=== PATIENT | female | born 1945 | race Caucasian/White ===

== ENCOUNTER 2020-12-07 08:25 | Emergency (ER) | payer OTHER, SELFPAY ==
--- NOTE | ~2020-12-07 | XR_ITS ---
EXAMINATION: XR finger 1st RT min 2V DATE: 12/07/2020 08:52 INDICATION: Right thumb injury and pain. TECHNIQUE: 3 views of right thumb were obtained. COMPARISON: None. FINDINGS: Bone alignment is normal. No fracture. There is severe osteoarthritis of first carpometacar pal joint and mild osteoarthritis of triscaphe joint, first metacarpophalangeal joint, and first inte rphalangeal joint. IMPRESSION: 1. Polyarticular osteoarthritis. Reviewed, dictated and finalized at location A.
[2020-12-07 08:35] VITALS: BP 121/65; PULSE 51; RESP 16; TEMP 36.6; O2SAT 100
--- NOTE | 2020-12-07 08:40 | ED.UPPEXIN ---
HPI - Extremity Injury (Upper) General Chief Complaint: Extremity Injury, Upper Stated Complaint: Swollen and bruised right Thumb Time Seen by Provider: 12/07/20 08:45 Source: patient Mode of arrival: ambulatory Limitations: no limitations History of Present Illness HPI narrative: Modesta Chappell is a 75 yo female with PMH of migraine, HN, anxiety, high cholesterol, comes to [facility] with a swollen R thumb she was throwing a screw coming out the door on Wednesday or Wednesday and hitting her finger against the frame of the door. Swollen painful and bruised; she is here to fracture Related Data Home Medications Medication Instructions Recorded Confirmed aspirin 81 mg PO DAILY 12/07/20 12/07/20 atorvastatin 80 mg PO DAILY 12/07/20 12/07/20 meloxicam 15 mg PO DAILY 12/07/20 12/07/20 omeprazole 40 mg PO DAILY 12/07/20 12/07/20 sumatriptan succinate 100 mg PO USEASDIRECTD 12/07/20 12/07/20 topiramate 50 mg PO BID 12/07/20 12/07/20 Allergies Allergy/AdvReac Type Severity Reaction Status Date / Time No Known Allergies Allergy Unverified 05/02/13 16:19 Review of Systems Review of Systems: Narrative: CONSTITUTIONAL: Denies fever, chills, sweats. EYES: Denies visual changes, redness, discharge. ENT: Denies rhinorrhea, congestion, sore throat, otalgia. CARDIOVASCULAR: Denies chest pain, palpitations, edema. RESPIRATORY: Denies dyspnea, wheezing, cough GASTROINTESTINAL: Denies abdominal pain, nausea, vomiting, diarrhea. GENITOURINARY: Denies dysuria, hematuria, abnormal discharge SKIN: Denies rash or itching. NEUROLOGIC: Denies numbness, or focal weakness. PSYCHIATRIC: Denies anxiety or depression. Right thumb swelling and ecchymosis PMFSH Past Medical History Medical History (Updated 12/07/20 @ 09:22 by Dawna Thomas CNP) Anxiety High cholesterol HTN (hypertension) BROOKS (nonalcoholic steatohepatitis) TIA (transient ischemic attack) Family History Family History Other Heart disease Hypertension Social History Social History (Updated 12/07/20 @ 08:59 by Dawna Thomas CNP) Smoking status: Former smoker Alcohol intake: former Gender identity (if verbalized by the patient): Female Comments At time of signature, I agree with nursing past medical, surgical, social and family history. There is no relevant family history pertinent to the presenting complaint. Exam Narrative: Exam Narrative: GENERAL: This is a well-nourished, well-developed patient, in mild distress. HEAD: normocephalic, atraumatic. EYES:Sclera clear/white. Vision is grossly intact. EARS: External ears normal. Hearing grossly intact. NOSE: External nose normal without nasal discharge, nares without redness, no rhinorrhea. THROAT: Mucous membranes moist, NECK: Neck supple, CARDIOVASCULAR: Regular rate and rhythm without murmurs, gallops, or rubs. RESPIRATORY: Clear to auscultation. Breath sounds equal bilaterally. No wheezes, rales, or rhonchi. GASTROINTESTINAL: Abdomen soft, SKIN: warm, intact with no suspicious lesions or rash, good texture and turgor. NEURO: awake, alert, and oriented to person, place and time. There were no obvious focal neurologic abnormalities. Steady gait EXTREMITIES: Normal range of motion. Right thumb can do finger opposition but difficulty with taking them across to finger 5 because of in it base of thumb and at distal joint she states that her distal area of her thumb is the most tender although she has bruising that goes from the snuffbox to the fingertip with moderate swelling. Capillary refill <2v sec. No nail involvement BACK: Nontender without deformity Course Course Emergency Course: Patient hit right thumb on door frame on Wednesday or Wednesday and has swelling and ecchymosis X-ray of right thumb shows-polyuric particular osteoarthritis, bone alignment is normal with no fracture Placed in a thumb splint keep hand elevated at night Vital Si
== END 2020-12-07 09:29 | disposition home or self-care (01) ==
PROVIDERS: Emergency Provider Nurse Practitioner; PCP Family Medicine
DX: S69.91XA Unspecified injury of right wrist, hand and finger(s), initial encounter (principal); W22.01XA Walked into wall, initial encounter; E78.00 Pure hypercholesterolemia, unspecified; K75.81 Nonalcoholic steatohepatitis (NASH); Z86.73 Personal history of transient ischemic attack (TIA), and cerebral infarction without residual deficits; Z87.891 Personal history of nicotine dependence
CPT/HCPCS: 29130; 73140; 99203; G0463

== ENCOUNTER 2023-04-03 11:46 | Emergency (ER) | payer OTHER, SELFPAY ==
--- NOTE | ~2023-04-03 | XR_ITS ---
EXAMINATION: XR hand LT min 3V INDICATION: Left hand pain, initial encounter TECHNIQUE: Three views of the left hand are obtained. COMPARISON: None available FINDINGS: There is an acute, traumatic, closed, nondisplaced fracture in the distal neck of the fifth metacarpal. No additional fracture is identified. There is mild osteoarthritis of multiple interphal angeal joints. There is advanced osteoarthritis of the triscaphe and first carpometacarpal joints. IMPRESSION: 1. Acute nondisplaced fracture in the distal neck of the fifth metacarpal. Reviewed, dictated and finalized at location F.
[2023-04-03 11:52] VITALS: BP 141/73; PULSE 60; RESP 20; TEMP 36.6; O2SAT 100
--- NOTE | 2023-04-03 12:00 | ED.FALL ---
HPI - Fall General Chief Complaint: Fall Stated Complaint: Fall Injury, Left Hand and Knee Pain History of Present Illness HPI Narrative: Patient presents with an abrasion to her left knee had injury to her left hand and little finger. Patient states she was standing on the bed to fix an item on the wall and fell off of the bed catching herself with her left hand. Bruising to the lateral side of her left hand no deformity noted. Related Data Home Medications Medication Instructions Recorded Confirmed aspirin 81 mg PO DAILY 12/07/20 12/07/20 atorvastatin 80 mg tablet 80 mg PO DAILY 12/07/20 12/07/20 meloxicam 15 mg tablet 15 mg PO DAILY 12/07/20 12/07/20 omeprazole 40 mg capsule,delayed 40 mg PO DAILY 12/07/20 12/07/20 release sumatriptan succinate 100 mg tablet 100 mg PO USEASDIRECTD 12/07/20 12/07/20 topiramate 25 mg tablet 50 mg PO BID 12/07/20 12/07/20 alprazolam 0.5 mg tablet mg 04/03/23 cholestyramine (with sugar) 4 gram ea 04/03/23 powder for susp in a packet fluticasone propionate 50 intranasal 04/03/23 mcg/actuation nasal spray,suspension propranolol 40 mg tablet mg 04/03/23 Allergies Allergy/AdvReac Type Severity Reaction Status Date / Time No Known Allergies Allergy Unverified 05/02/13 16:19 Review of Systems Review of Systems: CONSTITUTIONAL: Denies fever, chills, or sweats. EYES: Denies visual changes, redness, or discharge. ENT: Denies rhinorrhea, congestion, sore throat, or otalgia. CARDIOVASCULAR: Denies chest pain, palpitations, or edema. RESPIRATORY: Denies cough or dyspnea. GASTROINTESTINAL: Denies abdominal pain, nausea, vomiting, or diarrhea. GENITOURINARY: Denies dysuria or hematuria. SKIN: Denies rash or itching. MUSCULOSKELETAL: Denies back pain, joint pain, or myalgia. NEUROLOGIC: Denies headache, numbness, or weakness. PSYCHIATRIC: Denies anxiety or depression. [facility] Past Medical History Medical History (Updated 04/03/23 @ 12:29 by BRYSON Ahn) Anxiety High cholesterol HTN (hypertension) BROOKS (nonalcoholic steatohepatitis) TIA (transient ischemic attack) Family History Family History Other Heart disease Hypertension Social History Social History (Updated 12/07/20 @ 08:59 by Dawna Thomas, PAULINA) Smoking status: Former smoker Alcohol intake: former Gender identity (if verbalized by the patient): Female Comments At time of signature, agree with nursing past medical, surgical, social and family history. There is no relevant family history pertinent to the presenting complaint . Patient denies any head injury no loss of consciousness denies any other injuries. Exam Narrative: GENERAL: Well-appearing, well-nourished, and in no acute distress. HEAD: Normocephalic, atraumatic. EYES: PERRLA and EOMI. ENT: Nares clear, no rhinorrhea or epistaxis. Mucous membranes moist. NECK: Supple. CHEST: Clear to auscultation. No respiratory distress. HEART: Regular rate and rhythm. No murmur heard. Normal peripheral pulses. ABDOMEN: Soft, nontender, nondistended, normal active bowel sounds. EXTREMITIES: Normal range of motion. No edema. 3 cm abrasion to left knee. HAND EXAM - Skin intact, no laceration, no swelling, no erythema, normal digit cascade with flexion of fingers, median nerve, ulnar nerve, radial nerve is intact. Normal sensation of each side of each finger, can perform `ok? sign, `cross over finger test of index and middle fingers? and `thumbs up? sign, normal thumb opposition, no scissoring. good capillary refill and radial pulse. normal flexion and extension of fingers and wrist. normal supination at wrist. Normal forearm and elbow exam.bruising to lateral side of left hand SKIN: Warm, dry, no rash. NEURO: No focal deficits. Alert and oriented x3. [place] Coma Scale Eye Opening: Spontaneous 4 [place] Coma Scale Motor: Obeys Commands 6 [place] Coma Scale Verbal: Oriented 5 Glasg
== END 2023-04-03 13:01 | disposition home or self-care (01) ==
PROVIDERS: Emergency Provider Nurse Practitioner Family; PCP Family Medicine
DX: S62.367A Nondisplaced fracture of neck of fifth metacarpal bone, left hand, initial encounter for closed fracture (principal); S60.222A Contusion of left hand, initial encounter; S62.109A Fracture of unspecified carpal bone, unspecified wrist, initial encounter for closed fracture; I10 Essential (primary) hypertension; Z87.891 Personal history of nicotine dependence; Z86.73 Personal history of transient ischemic attack (TIA), and cerebral infarction without residual deficits; W06.XXXA Fall from bed, initial encounter
CPT/HCPCS: 29125; 73130; 99214; A4565; G0463